=== PATIENT | male | born 1960 | race Caucasian/White ===

== ENCOUNTER 2017-05-01 10:56 | Emergency (ER) | payer MEDICAID ==
[~2017-05-01] VITALS: Ht 175.3 cm; Wt 80.0 kg
[~2017-05-01 10:56] MED LIST: ALBU18HF2 IH; ASPI-1079 PO; FERR-63 PO; FLUT1AER IH; FOLI-43 PO; FURO-151 PO; GLIP5TAB12 PO; MULT-1146 PO
[2017-05-01 12:33] LABS: BASOPHILS % 2.7 % (0.0-2.0); EOSINOPHILS % 0.4 % (0.0-5.0); HEMATOCRIT. 37.2 % (42.0-52.0); LYMPHOCYTES % 18.9 % (20.0-50.0); MEAN CORPUSCULAR HEMOGLOBIN 27.5 pg (28.0-32.0); MEAN CORPUSCULAR VOLUME 85.6 fL (80.0-94.0); MEAN PLATELET VOLUME 9.9 fl (7.4-10.4); PLATELET 240 x1000/uL (130-400); RED BLOOD CELL COUNT 4.35 mill/uL (4.7-6.1); RED CELL DISTRIBUTION WIDTH 18.1 % (11.6-14.6)
[2017-05-01 15:17] VITALS: BP 125/80
[2017-05-01] MEDS ORDERED: ENOXAPARIN 120MG/0.8ML SYR SUBCUT ONE (15:30)
[2017-05-11] MEDS ORDERED: FOLI-43 PO (11:16)
[2017-05-11] MEDS ORDERED: FS300 PO (11:16)
[2017-05-11] MEDS ORDERED: GLIP5TAB12 PO (11:16)
[2017-05-11] MEDS ORDERED: NEPVIT PO (11:16)
[2017-05-11] MEDS ORDERED: ALBU18HF2 IH (11:16)
== END 2017-05-01 16:45 | disposition home or self-care (01) ==
LOC: ER 11:03
DX: I82.622 Acute embolism and thrombosis of deep veins of left upper extremity (principal); I13.2 Hypertensive heart and chronic kidney disease with heart failure and with stage 5 chronic kidney disease, or end stage renal disease; E11.22 Type 2 diabetes mellitus with diabetic chronic kidney disease; N18.6 End stage renal disease; I50.9 Heart failure, unspecified; J44.9 Chronic obstructive pulmonary disease, unspecified; D63.1 Anemia in chronic kidney disease; L97.929 Non-pressure chronic ulcer of unspecified part of left lower leg with unspecified severity; L97.919 Non-pressure chronic ulcer of unspecified part of right lower leg with unspecified severity; Z99.2 Dependence on renal dialysis
CPT/HCPCS: 36415; 85025; 93971; 96372; 99285; J1650

== ENCOUNTER → 2018-01-02 | Emergency (ER) | payer MEDICAID ==
[~2018-01-02] VITALS: Ht 175.3 cm; Wt 82.0 kg
[~2018-01-02] MED LIST changes: +ALTEPLASE 2MG/VIAL ITC ONE; +CEFEPIME 1,000 MG in DEXTROSE 5% WATER 50 ML IV SCH; -FERR-63 PO; +FERR325T23 PO; -FURO-151 PO; -MULT-1146 PO; +NEPVIT PO; +VANCOMYCIN 1 G PREMIX 200 ML IV ONE
[2018-01-02 12:09] LABS: BASOPHILS % 1.1 % (0.0-2.0); EOSINOPHILS % 0.7 % (0.0-5.0); HEMATOCRIT. 39.4 % (42.0-52.0); HEMOGLOBIN. 12.5 g/dL (14.0-18.0); MEAN CORPUSCULAR HEMOGLOBIN 28.2 pg (28.0-32.0); MEAN CORPUSCULAR VOLUME 88.8 fL (80.0-94.0); MEAN PLATELET VOLUME 10.3 fl (7.4-10.4); MONOCYTES % 8.8 % (2.0-8.0); NEUTROPHILS % 68.4 % (40.0-76.0); PLATELET 190 x1000/uL (130-400); RED BLOOD CELL COUNT 4.44 mill/uL (4.7-6.1); RED CELL DISTRIBUTION WIDTH 18.6 % (11.6-14.6)
[2018-01-02 12:17] LABS: CHLORIDE 102 mEq/L (98-107)
[2018-01-02 16:25] LABS: INR 1.5; PROTHROMBIN TIME 15.5 sec (9.4-11.6)
[2018-01-02 17:25] VITALS: BP 121/85
== END ==
LOC: ER 11:16 → EDBEDREQ 13:36 → CANBEDREQ 22:10
DX: T83.018A Breakdown (mechanical) of other urinary catheter, initial encounter (principal); E11.22 Type 2 diabetes mellitus with diabetic chronic kidney disease; E11.621 Type 2 diabetes mellitus with foot ulcer; L97.519 Non-pressure chronic ulcer of other part of right foot with unspecified severity; L97.529 Non-pressure chronic ulcer of other part of left foot with unspecified severity; E11.628 Type 2 diabetes mellitus with other skin complications; L08.9 Local infection of the skin and subcutaneous tissue, unspecified; E11.69 Type 2 diabetes mellitus with other specified complication; I13.2 Hypertensive heart and chronic kidney disease with heart failure and with stage 5 chronic kidney disease, or end stage renal disease; I50.9 Heart failure, unspecified; N18.6 End stage renal disease; J44.9 Chronic obstructive pulmonary disease, unspecified; M86.171 Other acute osteomyelitis, right ankle and foot; M86.172 Other acute osteomyelitis, left ankle and foot; Z99.2 Dependence on renal dialysis; Z79.84 Long term (current) use of oral hypoglycemic drugs; Z79.82 Long term (current) use of aspirin; Z98.890 Other specified postprocedural states; Y92.89 Other specified places as the place of occurrence of the external cause
CPT/HCPCS: 36415; 37211; 73630; 80053; 85025; 85610; 85651; 86140; 87040; 87070; 87077; 87186; 87205; 99285; J0692; J2997; J7060

== ENCOUNTER 2018-10-09 14:11 | Inpatient (IN) | payer MEDICAID ==
[~2018-10-09] VITALS: Ht 167.6 cm; Wt 63.7 kg
[~2018-10-09 14:11] MED LIST changes: -ALTEPLASE 2MG/VIAL ITC ONE; -CEFEPIME 1,000 MG in DEXTROSE 5% WATER 50 ML IV SCH; -VANCOMYCIN 1 G PREMIX 200 ML IV ONE
[2018-10-09] MEDS ORDERED: ONDANSETRON HCL 4MG/2ML INJ IV STA (16:57)
[2018-10-09] MEDS ORDERED: FENTANYL CITRATE/PF 50MCG/ML 2ML VIAL IV ONE (17:15)
[2018-10-09] MEDS ORDERED: PIPERACILLIN/TAZ 3.375G PREMIX 50 ML IV ONE (17:30)
[2018-10-09] MEDS ORDERED: DEXT 5%/0.45% NACL KCL 20MEQ/L 1,000 ML IV SCH ×2 (17:40→23:30)
[2018-10-09] MEDS ORDERED: MORPHINE SULFATE 4 MG/ML CPJ (NOT FOR IM USE) IV PRN ×3 (17:45→18:30)
[2018-10-09] MEDS ORDERED: MORPHINE SULFATE 2 MG/ML CPJ (NOT FOR IM USE) IV PRN (17:45)
[2018-10-09] MEDS ORDERED: HYDROCODONE/ACETAMINOPHEN 5/325MG TABLET PO PRN ×4 (17:45→18:30)
[2018-10-09] MEDS ORDERED: ONDANSETRON HCL 4MG/2ML INJ IV PRN ×3 (17:45→19:30)
[2018-10-09] MEDS ORDERED: SKIN ADHESIVE 0.7 GM EA TOP ONE (17:47)
[2018-10-09] MEDS ORDERED: BUPIVACAINE HCL 0.5% (5MG/ML) 50ML ONE (17:48)
[2018-10-09] MEDS ORDERED: LIDOCAINE HCL/PF 1% 10 MG/ML 5ML VIAL ONE (17:58)
[2018-10-09] MEDS ORDERED: FENTANYL CITRATE/PF 50MCG/ML 2ML VIAL ONE (17:58)
[2018-10-09] MEDS ORDERED: MIDAZOLAM HCL 2 MG/2 ML VIAL ONE (17:59)
[2018-10-09] MEDS ORDERED: SUCCINYLCHOLINE CHLORIDE 200MG/10ML IV ONE (18:00)
[2018-10-09] MEDS ORDERED: ROCURONIUM BROMIDE 10MG/ML VIAL 5ML IV ONE (18:01)
[2018-10-09] MEDS ORDERED: PROPOFOL 200MG/20ML VIAL IV ONE (18:03)
[2018-10-09 18:15] LABS: BASOPHILS % 0.8 % (0.0-2.0); EOSINOPHILS % 0.6 % (0.0-5.0); HEMATOCRIT. 43.5 % (42.0-52.0); HEMOGLOBIN. 14.8 g/dL (14.0-18.0); LYMPHOCYTES % 11.7 % (20.0-50.0); MEAN CORPUSCULAR HEMOGLOBIN 30.4 pg (28.0-32.0); MEAN CORPUSCULAR VOLUME 89.8 fL (80.0-94.0); MEAN PLATELET VOLUME 8.9 fl (7.4-10.4); NEUTROPHILS % 74.9 % (40.0-76.0); PLATELET 270 x1000/uL (130-400); RED BLOOD CELL COUNT 4.85 mill/uL (4.7-6.1); RED CELL DISTRIBUTION WIDTH 16.2 % (11.6-14.6)
[2018-10-09 18:19] LABS: CHLORIDE 80 mEq/L (98-107)
[2018-10-09 18:22] LABS: INR 1.2; PARTIAL THROMBOPLASTIN TIME 28.5 sec (23.4-31.0); PROTHROMBIN TIME 11.8 sec (9.1-11.1)
[2018-10-09] MEDS ORDERED: ETOMIDATE 2MG/ML 10ML VIAL IV ONE (18:29)
[2018-10-09 19:03] LABS: PHOSPHORUS 8.7 mg/dL (2.5-4.9)
[2018-10-09] MEDS ORDERED: NEOSTIGMINE METHYLSULFATE 1MG/ML 10 ML VIAL ONE (19:26)
[2018-10-09] MEDS ORDERED: GLYCOPYRROLATE 0.2 MG/ML 2ML VIAL ONE ×2 (19:26→19:30)
[2018-10-09] MEDS ORDERED: MEPERIDINE HCL/PF 25MG/ML CPJ IV PRN (19:30)
[2018-10-09] MEDS ORDERED: HYDROMORPHONE HCL/PF 2MG/ML CPJ IV PRN (19:30)
[2018-10-09] MEDS ORDERED: LABETALOL HCL 20MG/4ML CARPUJECT IV PRN (19:30)
[2018-10-09] MEDS ORDERED: IPRATROPIUM/ALBUTEROL 0.5-3(2.5)MG/3ML NEB HHN NR (19:45)
[2018-10-09 21:58] LABS: BG BASE EXCESS 13.3 mmol/L (-2.0-2.0); BG CARBOXYHEMOGLOBIN 1.3 % (0.5-1.5); BG DEOXYHEMOGLOBIN 1.2 % (0.0-5.0); BG FRACTION INSPIRED OXYGEN 40; BG HCO3 ACT 37.7 mmol/L (22.0-26.0); BG METHEMOGLOBIN 0.5 % (0.0-1.5); BG OXYGEN SATURATION 98.8 % (92.0-98.5); BG PCO2 45.8 mmHg (35.0-45.0); BG PH 7.533 (7.350-7.450); BG PO2 148.6 mmHg (75.0-100.0); BG SAMPLE SITE RIGHT BRACHIAL; BG TOTAL HEMOGLOBIN 13.8 g/dL (12.0-18.0)
[2018-10-09] MEDS ORDERED: SODIUM CHLORIDE 0.9% INJ 3ML FLUSH IVF SCH (22:00)
[2018-10-09] MEDS ORDERED: IPRATROPIUM/ALBUTEROL 0.5-3(2.5)MG/3ML NEB INH PRN (22:15)
[2018-10-09] MEDS ORDERED: CLONIDINE 0.1MG TABLET PO PRN (22:15)
[2018-10-09 22:45] VITALS: BP 118/64
[2018-10-09 22:54] VITALS: BP 118/64
[2018-10-10] VITALS: BP 118/64
[2018-10-10] MEDS: BUDESONIDE 0.5MG/2ML NEB HHN SCH (01:59)
[2018-10-10 04:00] VITALS: BP 101/54
[2018-10-10] MEDS: SODIUM CHLORIDE 0.9% INJ 3ML FLUSH IVF SCH ×3 (06:27→21:08)
[2018-10-10 07:37] LABS: BASOPHILS % 0.7 % (0.0-2.0); HEMATOCRIT. 39.5 % (42.0-52.0); HEMOGLOBIN. 13.4 g/dL (14.0-18.0); MEAN CORPUSCULAR HEMOGLOBIN 30.6 pg (28.0-32.0); MEAN CORPUSCULAR VOLUME 90.3 fL (80.0-94.0); MEAN PLATELET VOLUME 8.9 fl (7.4-10.4); MONOCYTES % 12.2 % (2.0-8.0); NEUTROPHILS % 76.1 % (40.0-76.0); PLATELET 233 x1000/uL (130-400); RED BLOOD CELL COUNT 4.37 mill/uL (4.7-6.1); RED CELL DISTRIBUTION WIDTH 16.5 % (11.6-14.6)
[2018-10-10 08:00] VITALS: BP 107/68
[2018-10-10] MEDS: DEXT 5%/0.45% NACL 1000ML 1,000 ML IV SCH (11:00)
[2018-10-10] MEDS ORDERED: IPRATROPIUM/ALBUTEROL 0.5-3(2.5)MG/3ML NEB ONE (11:47)
[2018-10-10 11:55] VITALS: BP 106/69
[2018-10-10] MEDS: ASPIRIN 81MG TABLET PO SCH (12:40)
[2018-10-10] MEDS: FOLIC ACID/VITAMIN B COMP W-C TABLET PO SCH (12:40)
[2018-10-10 15:30] LABS: BG VENT MODE VENT - CPAP
[2018-10-10 15:57] VITALS: BP 92/58
[2018-10-10] MEDS: FERROUS SULFATE 325MG TABLET PO SCH (17:22)
[2018-10-10 20:00] VITALS: BP 91/57
[2018-10-10] MEDS: ONDANSETRON HCL 4MG/2ML INJ IV PRN (21:03)
[2018-10-11] VITALS: BP 106/62
[2018-10-11] MEDS: DEXT 5%/0.45% NACL 1000ML 1,000 ML IV SCH (01:23)
[2018-10-11] MEDS: ALBUTEROL (0.5%) 2.5MG/0.5ML NEB HHN SCH ×4 (01:59→21:17)
[2018-10-11 04:00] VITALS: BP 98/57
[2018-10-11 08:00] VITALS: BP 112/73
[2018-10-11 08:00] LABS: BASOPHILS % 0.6 % (0.0-2.0); EOSINOPHILS % 1.3 % (0.0-5.0); HEMATOCRIT. 39.6 % (42.0-52.0); HEMOGLOBIN. 13.4 g/dL (14.0-18.0); LYMPHOCYTES % 17.3 % (20.0-50.0); MEAN CORPUSCULAR HEMOGLOBIN 30.8 pg (28.0-32.0); MEAN CORPUSCULAR VOLUME 91.1 fL (80.0-94.0); MONOCYTES % 14.4 % (2.0-8.0); NEUTROPHILS % 66.4 % (40.0-76.0); PLATELET 211 x1000/uL (130-400); RED BLOOD CELL COUNT 4.35 mill/uL (4.7-6.1); RED CELL DISTRIBUTION WIDTH 16.3 % (11.6-14.6)
[2018-10-11] MEDS: BUDESONIDE 0.5MG/2ML NEB HHN SCH ×2 (08:42→21:17)
[2018-10-11] MEDS: ASPIRIN 81MG TABLET PO SCH (08:42)
[2018-10-11] MEDS: FERROUS SULFATE 325MG TABLET PO SCH ×2 (08:42→16:02)
[2018-10-11] MEDS: FOLIC ACID/VITAMIN B COMP W-C TABLET PO SCH (08:43)
[2018-10-11] MEDS ORDERED: [UNRECOGNIZED DRUG - MIXTURE] IH SCH (09:00)
[2018-10-11 09:18] LABS: CHLORIDE 91 mEq/L (98-107)
[2018-10-11] MEDS: SODIUM CHLORIDE 0.9% INJ 3ML FLUSH IVF SCH ×2 (14:00→22:00)
[2018-10-11 16:00] VITALS: BP 94/60
[2018-10-11 20:00] VITALS: BP 101/63
[2018-10-12 00:15] VITALS: BP 105/66
[2018-10-12] MEDS: ALBUTEROL (0.5%) 2.5MG/0.5ML NEB HHN SCH ×4 (03:08→21:05)
[2018-10-12 04:00] VITALS: BP 113/67
[2018-10-12] MEDS: SODIUM CHLORIDE 0.9% INJ 3ML FLUSH IVF SCH ×3 (05:39→21:43)
[2018-10-12 08:00] VITALS: BP 112/69
[2018-10-12] MEDS: ASPIRIN 81MG TABLET PO SCH (08:22)
[2018-10-12] MEDS: FOLIC ACID/VITAMIN B COMP W-C TABLET PO SCH (08:22)
[2018-10-12] MEDS: FERROUS SULFATE 325MG TABLET PO SCH ×2 (08:22→16:18)
[2018-10-12] MEDS: BUDESONIDE 0.5MG/2ML NEB HHN SCH ×2 (09:07→21:06)
[2018-10-12 09:52] LABS: HEMATOCRIT. 36.8 % (42.0-52.0); HEMOGLOBIN. 12.2 g/dL (14.0-18.0); MEAN CORPUSCULAR VOLUME 90.4 fL (80.0-94.0); MEAN PLATELET VOLUME 9.3 fl (7.4-10.4); PLATELET 187 x1000/uL (130-400); RED BLOOD CELL COUNT 4.07 mill/uL (4.7-6.1); RED CELL DISTRIBUTION WIDTH 16.1 % (11.6-14.6)
[2018-10-12 10:42] LABS: PHOSPHORUS 7.9 mg/dL (2.5-4.9)
[2018-10-12 10:53] LABS: PLATELET ESTIMATE NORMAL
[2018-10-12 12:00] VITALS: BP 109/59
[2018-10-12] MEDS ORDERED: MAGNESIUM/ALUMINUM HYDROXIDE/SIMETHICONE 30ML UDC PO PRN (14:15)
[2018-10-12 16:00] VITALS: BP 104/69
[2018-10-12] MEDS: ONDANSETRON HCL 4MG/2ML INJ IV PRN (19:33)
[2018-10-12 20:00] VITALS: BP 106/66
[2018-10-12] MEDS ORDERED: PANTOPRAZOLE 40MG DR TABLET PO NR (21:30)
[2018-10-13] VITALS: BP 102/63
[2018-10-13] MEDS: ALBUTEROL (0.5%) 2.5MG/0.5ML NEB HHN SCH ×2 (01:00→21:05)
[2018-10-13] MEDS ORDERED: ALBUTEROL (0.083%) 2.5MG/3ML NEB ONE (01:06)
[2018-10-13 04:00] VITALS: BP 113/73
[2018-10-13] MEDS: SODIUM CHLORIDE 0.9% INJ 3ML FLUSH IVF SCH ×3 (06:00→21:39)
[2018-10-13 08:00] VITALS: BP 106/66
[2018-10-13] MEDS: BUDESONIDE 0.5MG/2ML NEB HHN SCH ×2 (08:20→21:05)
[2018-10-13] MEDS: ASPIRIN 81MG TABLET PO SCH (08:33)
[2018-10-13] MEDS: PANTOPRAZOLE 40MG DR TABLET PO SCH (08:33)
[2018-10-13] MEDS: FERROUS SULFATE 325MG TABLET PO SCH ×2 (08:33→18:04)
[2018-10-13] MEDS: FOLIC ACID/VITAMIN B COMP W-C TABLET PO SCH (08:33)
[2018-10-13] MEDS: ENOXAPARIN 30MG/0.3ML SYR SUBCUT SCH (09:30)
[2018-10-13 12:07] VITALS: BP 100/59
[2018-10-13 16:00] VITALS: BP 110/56
[2018-10-13 20:00] VITALS: BP 105/64
[2018-10-14] VITALS: BP 107/63
[2018-10-14] MEDS: ALBUTEROL (0.5%) 2.5MG/0.5ML NEB HHN SCH (01:40)
[2018-10-14 04:00] VITALS: BP 128/60
[2018-10-14] MEDS: SODIUM CHLORIDE 0.9% INJ 3ML FLUSH IVF SCH (05:46)
[2018-10-14 08:15] VITALS: BP 109/67
[2018-10-14] MEDS: PANTOPRAZOLE 40MG DR TABLET PO SCH (09:25)
[2018-10-14] MEDS: ASPIRIN 81MG TABLET PO SCH (09:25)
[2018-10-14] MEDS: ENOXAPARIN 30MG/0.3ML SYR SUBCUT SCH (09:25)
[2018-10-14] MEDS: FOLIC ACID/VITAMIN B COMP W-C TABLET PO SCH (09:25)
[2018-10-14] MEDS: FERROUS SULFATE 325MG TABLET PO SCH (09:25)
[2018-10-14] MEDS ORDERED: ALBUTEROL (0.083%) 2.5MG/3ML NEB HHN SCH (11:34)
[2018-10-14 12:00] VITALS: BP 107/66
[2018-10-14 12:34] VITALS: BP 20/140
== END 2018-10-14 13:00 | disposition home health service (06) | DRG 227 ==
LOC: ER 14:11 → EDBEDREQ 17:25 → EDBEDREQTM 17:25 → ER 18:24 → ENRESERV 20:17 → 8WST 22:12
PROVIDERS: ADMIT Internal Medicine; ATTEND Internal Medicine
PROC: 0WQF0ZZ Repair Abdominal Wall, Open Approach (ICD-10-PCS; principal; 2018-10-09 18:00)
PROC: 5A1D70Z Performance of Urinary Filtration, Intermittent, Less than 6 Hours Per Day (ICD-10-PCS; 2018-10-10)
PROC: 5A1D70Z Performance of Urinary Filtration, Intermittent, Less than 6 Hours Per Day (ICD-10-PCS; 2018-10-11)
DX: K43.6 Other and unspecified ventral hernia with obstruction, without gangrene (principal); I63.9 Cerebral infarction, unspecified; I13.2 Hypertensive heart and chronic kidney disease with heart failure and with stage 5 chronic kidney disease, or end stage renal disease; E46 Unspecified protein-calorie malnutrition; N18.6 End stage renal disease; E11.22 Type 2 diabetes mellitus with diabetic chronic kidney disease; I42.9 Cardiomyopathy, unspecified; I50.22 Chronic systolic (congestive) heart failure; E11.52 Type 2 diabetes mellitus with diabetic peripheral angiopathy with gangrene; E78.5 Hyperlipidemia, unspecified; E87.1 Hypo-osmolality and hyponatremia; D63.1 Anemia in chronic kidney disease; I44.4 Left anterior fascicular block; N25.81 Secondary hyperparathyroidism of renal origin; Z86.711 Personal history of pulmonary embolism; Z99.2 Dependence on renal dialysis; J44.9 Chronic obstructive pulmonary disease, unspecified; Z79.84 Long term (current) use of oral hypoglycemic drugs; Z82.49 Family history of ischemic heart disease and other diseases of the circulatory system; Z86.73 Personal history of transient ischemic attack (TIA), and cerebral infarction without residual deficits; Z87.891 Personal history of nicotine dependence
CPT/HCPCS: 36415; 36600; 80048; 80061; 82375; 82805; 83735; 84100; 84443; 84484; 86850; 86900; 86920; 88302; 93005; 93922; 94002; 94640; 97162; 97535; 99291; C1893; J0330; J1650; J2250; J2270; J2405; J2543; J2704; J2710; J3010; J3490; J7611; J7620; J7626

== ENCOUNTER 2019-07-31 10:26 | Inpatient (IN) | payer MEDICAID ==
[~2019-07-31] VITALS: Ht 172.7 cm; Wt 77.6 kg
[2019-07-31] MEDS ORDERED: LORAZEPAM 2MG/ML CPJ IV ONE (10:45)
[2019-07-31] MEDS: INSULIN LISPRO 100 UNITS/ML SUBCUT SCH (11:00)
[2019-07-31 11:31] LABS: BASOPHILS % 0.4 % (0.0-2.0); EOSINOPHILS % 1.7 % (0.0-5.0); HEMATOCRIT. 42.8 % (42.0-52.0); HEMOGLOBIN. 14.2 g/dL (14.0-18.0); LYMPHOCYTES % 13.2 % (20.0-50.0); MEAN CORPUSCULAR HEMOGLOBIN 32.7 pg (28.0-32.0); MEAN CORPUSCULAR VOLUME 98.3 fL (80.0-94.0); MEAN PLATELET VOLUME 9.7 fl (7.4-10.4); MONOCYTES % 7.9 % (2.0-8.0); NEUTROPHILS % 76.8 % (40.0-76.0); PLATELET 240 x1000/uL (130-400); RED BLOOD CELL COUNT 4.35 mill/uL (4.7-6.1); RED CELL DISTRIBUTION WIDTH 14.9 % (11.6-14.6)
[2019-07-31 11:38] LABS: CHLORIDE 105 mEq/L (98-107)
[2019-07-31 11:40] LABS: PROTHROMBIN TIME 10.3 sec (9.6-11.0)
[2019-07-31] MEDS ORDERED: ONDANSETRON HCL 4MG/2ML INJ IV ONE (12:00)
[2019-07-31] MEDS ORDERED: PIPERACILLIN/TAZ 3.375G PREMIX 50 ML IV ONE (12:00)
[2019-07-31] MEDS ORDERED: ETOMIDATE 2MG/ML 10ML VIAL IV ONE ×2 (12:00→12:01)
[2019-07-31] MEDS ORDERED: MIDAZOLAM HCL 50 MG in DEXTROSE 5% WATER 40 ML IV ONE (12:00)
[2019-07-31] MEDS ORDERED: SUCCINYLCHOLINE CHLORIDE 200MG/10ML IV ONE ×2 (12:00→12:01)
[2019-07-31] MEDS ORDERED: MIDAZOLAM HCL 2 MG/2 ML VIAL IV ONE (12:00)
[2019-07-31] MEDS ORDERED: MIDAZOLAM HCL 50 MG in DEXTROSE 5% WATER 40 ML IV SCH (12:30)
[2019-07-31 12:44] LABS: BG BASE EXCESS -3.8 mmol/L (-2.0-2.0); BG CARBOXYHEMOGLOBIN 0.7 % (0.5-1.5); BG FRACTION INSPIRED OXYGEN 44; BG HCO3 ACT 22.7 mmol/L (22.0-26.0); BG METHEMOGLOBIN 0.3 % (0.0-1.5); BG OXYGEN SATURATION 91.9 % (92.0-98.5); BG PCO2 46.9 mmHg (35.0-45.0); BG PH 7.303 (7.350-7.450); BG SAMPLE SITE RIGHT BRACHIAL; BG TOTAL HEMOGLOBIN 13.5 g/dL (12.0-18.0); BG VENT MODE NASAL CANNULA
[2019-07-31] MEDS ORDERED: DOCUSATE SODIUM 100MG CAPSULE PO PRN (13:15)
[2019-07-31] MEDS ORDERED: IPRATROPIUM/ALBUTEROL 0.5-3(2.5)MG/3ML NEB NEB PRN (13:15)
[2019-07-31] MEDS ORDERED: ACETAMINOPHEN 325MG TABLET PO PRN (13:15)
[2019-07-31] MEDS ORDERED: ONDANSETRON HCL 4MG/2ML INJ IV PRN (13:15)
[2019-07-31 14:39] LABS: BG BASE EXCESS -3.4 mmol/L (-2.0-2.0); BG DEOXYHEMOGLOBIN 0.8 % (0.0-5.0); BG FRACTION INSPIRED OXYGEN 100; BG HCO3 ACT 22.3 mmol/L (22.0-26.0); BG METHEMOGLOBIN 0.2 % (0.0-1.5); BG OXYGEN SATURATION 99.2 % (92.0-98.5); BG PCO2 42.5 mmHg (35.0-45.0); BG PH 7.338 (7.350-7.450); BG PO2 272.3 mmHg (75.0-100.0); BG SAMPLE SITE RIGHT BRACHIAL; BG TIDAL VOLUME(mL) 550 mL; BG TOTAL HEMOGLOBIN 13.2 g/dL (12.0-18.0); BG VENT MODE VENT - A/C; BG VENT RATE 16 set
[2019-07-31 14:43] LABS: CLARITY URINE CLOUDY (CLEAR); COLOR URINE YELLOW (YELLOW); KETONES URINE NEGATIVE (NEGATIVE); LEUKOCYTE ESTERASE URINE 2+ (NEGATIVE); NITRITE URINE NEGATIVE (NEGATIVE); OCCULT BLOOD URINE 2+ (NEGATIVE); PH URINE 5.5 (4.5-8.0); PROTEIN URINE 3+ (NEGATIVE); SPECIFIC GRAVITY URINE 1.018 (1.005-1.030); UROBILINOGEN URINE 0.2 E.U./dL (0.2-1.0)
[2019-07-31] MEDS ORDERED: PROPOFOL 10MG/ML 100ML 100 ML IV PRN (15:30)
[2019-07-31] MEDS ORDERED: IPRATROPIUM/ALBUTEROL 0.5-3(2.5)MG/3ML NEB HHN PRN (15:30)
[2019-07-31] MEDS ORDERED: INSULIN LISPRO 100 UNITS/ML SUBCUT SCH (15:30)
[2019-07-31] MEDS ORDERED: BLOOD SUGAR DIAGNOSTIC STRIP TEST SCH (15:30)
[2019-07-31] MEDS ORDERED: DEXTROSE 50% WATER 50ML SYRINGE IV PRN (15:30)
[2019-07-31] MEDS: IPRATROPIUM/ALBUTEROL 0.5-3(2.5)MG/3ML NEB HHN SCH (21:07)
[2019-07-31] MEDS ORDERED: PIPERACILLIN/TAZ 3.375G PREMIX 50 ML IV NR (21:20)
[2019-07-31 21:52] LABS: CREATINE KINASE MB FRACTION 4.8 ng/mL (0.5-3.6)
[2019-07-31] MEDS: BLOOD SUGAR DIAGNOSTIC STRIP TEST SCH (22:24)
[2019-07-31] MEDS ORDERED: FAMOTIDINE 20MG/2ML VIAL IV NR (22:30)
[2019-07-31] MEDS ORDERED: VANCOMYCIN 1 G PREMIX 200 ML IV SCH (23:00)
[2019-07-31 23:10] LABS: CREATINE KINASE MB FRACTION 4.4 ng/mL (0.5-3.6)
[2019-08-01] VITALS (75 sets, daily range): BP systolic 88–122; BP diastolic 43–75
[2019-08-01] MEDS: IPRATROPIUM/ALBUTEROL 0.5-3(2.5)MG/3ML NEB HHN SCH ×6 (00:42→21:15)
[2019-08-01] MEDS: BLOOD SUGAR DIAGNOSTIC STRIP TEST SCH ×4 (05:54→23:26)
[2019-08-01 06:52] LABS: HEMATOCRIT. 35.1 % (42.0-52.0); HEMOGLOBIN. 12.1 g/dL (14.0-18.0); MEAN CORPUSCULAR HEMOGLOBIN 33.4 pg (28.0-32.0); MEAN CORPUSCULAR VOLUME 97.3 fL (80.0-94.0); MEAN PLATELET VOLUME 9.7 fl (7.4-10.4); PLATELET 158 x1000/uL (130-400); RED BLOOD CELL COUNT 3.61 mill/uL (4.7-6.1); RED CELL DISTRIBUTION WIDTH 14.5 % (11.6-14.6)
[2019-08-01 07:42] LABS: PLATELET ESTIMATE NORMAL
[2019-08-01] MEDS ORDERED: FAMOTIDINE 20MG TABLET PO SCH (09:00)
[2019-08-01] MEDS ORDERED: PIPERACILLIN/TAZ 3.375G PREMIX 50 ML IV SCH (09:00)
[2019-08-01] MEDS: HEPARIN 5000 UNITS/ML VIAL SUBCUT SCH ×2 (09:00→21:22)
[2019-08-01] MEDS: INSULIN LISPRO 100 UNITS/ML SUBCUT SCH ×3 (11:00→23:00)
[2019-08-01] MEDS: FAMOTIDINE 20MG/2ML VIAL IV SCH (11:17)
[2019-08-01] MEDS ORDERED: VANCOMYCIN 1 G PREMIX 200 ML IV NR (15:00)
[2019-08-01 15:44] LABS: BG BASE EXCESS -3.8 mmol/L (-2.0-2.0); BG CARBOXYHEMOGLOBIN 0.4 % (0.5-1.5); BG DEOXYHEMOGLOBIN 1.3 % (0.0-5.0); BG FRACTION INSPIRED OXYGEN 40; BG HCO3 ACT 19.6 mmol/L (22.0-26.0); BG OXYGEN SATURATION 98.7 % (92.0-98.5); BG OXYHEMOGLOBIN 98.3 % (94.0-97.0); BG PCO2 31.2 mmHg (35.0-45.0); BG PH 7.417 (7.350-7.450); BG PO2 152.8 mmHg (75.0-100.0); BG SAMPLE SITE LEFT RADIAL; BG TIDAL VOLUME(mL) 550 mL; BG TOTAL HEMOGLOBIN 13.4 g/dL (12.0-18.0); BG VENT MODE VENT - A/C; BG VENT RATE 16 set
[2019-08-01] MEDS: PIPERACILLIN/TAZOBACTAM 2.25 G in DEXTROSE 5% WATER 50 ML IV SCH ×2 (15:49→18:57)
[2019-08-01 22:08] LABS: HEMATOCRIT. 38.5 % (42.0-52.0); MEAN CORPUSCULAR HEMOGLOBIN 33.2 pg (28.0-32.0); MEAN CORPUSCULAR VOLUME 98.4 fL (80.0-94.0); MEAN PLATELET VOLUME 10.1 fl (7.4-10.4); PLATELET 156 x1000/uL (130-400); RED BLOOD CELL COUNT 3.91 mill/uL (4.7-6.1); RED CELL DISTRIBUTION WIDTH 14.7 % (11.6-14.6)
[2019-08-01 22:22] LABS: PLATELET ESTIMATE NORMAL
[2019-08-01] MEDS: PROPOFOL 10MG/ML 100ML 100 ML IV PRN (23:59)
[2019-08-02] VITALS (100 sets, daily range): BP systolic 89–132; BP diastolic 53–85
[2019-08-02] MEDS: IPRATROPIUM/ALBUTEROL 0.5-3(2.5)MG/3ML NEB HHN SCH ×6 (00:41→21:46)
[2019-08-02] MEDS: PIPERACILLIN/TAZOBACTAM 2.25 G in DEXTROSE 5% WATER 50 ML IV SCH ×3 (02:00→18:46)
[2019-08-02] MEDS: INSULIN LISPRO 100 UNITS/ML SUBCUT SCH ×4 (05:00→23:00)
[2019-08-02] MEDS: BLOOD SUGAR DIAGNOSTIC STRIP TEST SCH ×4 (05:54→23:00)
[2019-08-02 08:41] LABS: BG BASE EXCESS -3.3 mmol/L (-2.0-2.0); BG CARBOXYHEMOGLOBIN 0.3 % (0.5-1.5); BG DEOXYHEMOGLOBIN 1.4 % (0.0-5.0); BG FRACTION INSPIRED OXYGEN 40; BG HCO3 ACT 20.3 mmol/L (22.0-26.0); BG METHEMOGLOBIN 0.6 % (0.0-1.5); BG OXYGEN SATURATION 98.6 % (92.0-98.5); BG OXYHEMOGLOBIN 97.7 % (94.0-97.0); BG PCO2 32.5 mmHg (35.0-45.0); BG PH 7.414 (7.350-7.450); BG PO2 176.4 mmHg (75.0-100.0); BG SAMPLE SITE RIGHT RADIAL; BG TIDAL VOLUME(mL) 550 mL; BG VENT MODE VENT - A/C; BG VENT RATE 16 set
[2019-08-02] MEDS ORDERED: DEXT 5%/0.45% NACL 1000ML 1,000 ML IV SCH (09:30)
[2019-08-02] MEDS: FAMOTIDINE 20MG/2ML VIAL IV SCH (09:33)
[2019-08-02] MEDS: HEPARIN 5000 UNITS/ML VIAL SUBCUT SCH ×2 (09:34→20:36)
[2019-08-02] MEDS: ASPIRIN 81MG EC TABLET PO SCH (13:00)
[2019-08-02] MEDS: PROPOFOL 10MG/ML 100ML 100 ML IV PRN ×2 (13:55→18:47)
[2019-08-03] VITALS (45 sets, daily range): BP systolic 94–135; BP diastolic 47–79
[2019-08-03] MEDS: PROPOFOL 10MG/ML 100ML 100 ML IV PRN ×6 (00:38→22:01)
[2019-08-03] MEDS: IPRATROPIUM/ALBUTEROL 0.5-3(2.5)MG/3ML NEB HHN SCH ×6 (01:12→20:17)
[2019-08-03] MEDS: PIPERACILLIN/TAZOBACTAM 2.25 G in DEXTROSE 5% WATER 50 ML IV SCH ×3 (02:21→17:42)
[2019-08-03] MEDS: INSULIN LISPRO 100 UNITS/ML SUBCUT SCH ×4 (05:00→23:00)
[2019-08-03] MEDS: BLOOD SUGAR DIAGNOSTIC STRIP TEST SCH ×4 (05:23→23:00)
[2019-08-03 06:27] LABS: BASOPHILS % 0.6 % (0.0-2.0); EOSINOPHILS % 4.8 % (0.0-5.0); HEMATOCRIT. 38.7 % (42.0-52.0); HEMOGLOBIN. 13.2 g/dL (14.0-18.0); LYMPHOCYTES % 9.3 % (20.0-50.0); MEAN CORPUSCULAR HEMOGLOBIN 33.3 pg (28.0-32.0); MEAN CORPUSCULAR VOLUME 97.7 fL (80.0-94.0); MEAN PLATELET VOLUME 9.7 fl (7.4-10.4); MONOCYTES % 9.6 % (2.0-8.0); NEUTROPHILS % 75.7 % (40.0-76.0); PLATELET 169 x1000/uL (130-400); RED BLOOD CELL COUNT 3.96 mill/uL (4.7-6.1); RED CELL DISTRIBUTION WIDTH 14.8 % (11.6-14.6)
[2019-08-03 09:01] LABS: BG BASE EXCESS -3.4 mmol/L (-2.0-2.0); BG CARBOXYHEMOGLOBIN 0.1 % (0.5-1.5); BG DEOXYHEMOGLOBIN 0.9 % (0.0-5.0); BG FRACTION INSPIRED OXYGEN 40; BG HCO3 ACT 19.4 mmol/L (22.0-26.0); BG METHEMOGLOBIN 0.1 % (0.0-1.5); BG OXYGEN SATURATION 99.1 % (92.0-98.5); BG OXYHEMOGLOBIN 98.9 % (94.0-97.0); BG PCO2 28.9 mmHg (35.0-45.0); BG PH 7.445 (7.350-7.450); BG PO2 205.5 mmHg (75.0-100.0); BG SAMPLE SITE LEFT RADIAL; BG TIDAL VOLUME(mL) 550 mL; BG TOTAL HEMOGLOBIN 13.6 g/dL (12.0-18.0); BG VENT MODE VENT - A/C; BG VENT RATE 16 set
[2019-08-03] MEDS: FAMOTIDINE 20MG/2ML VIAL IV SCH (09:45)
[2019-08-03] MEDS: HEPARIN 5000 UNITS/ML VIAL SUBCUT SCH ×2 (09:45→21:04)
[2019-08-03] MEDS: ASPIRIN 81MG EC TABLET PO SCH (09:45)
[2019-08-04] VITALS (92 sets, daily range): BP systolic 93–149; BP diastolic 43–92
[2019-08-04] MEDS: IPRATROPIUM/ALBUTEROL 0.5-3(2.5)MG/3ML NEB HHN SCH ×6 (00:07→20:07)
[2019-08-04] MEDS: PROPOFOL 10MG/ML 100ML 100 ML IV PRN ×4 (02:11→10:18)
[2019-08-04] MEDS: PIPERACILLIN/TAZOBACTAM 2.25 G in DEXTROSE 5% WATER 50 ML IV SCH ×3 (02:11→18:43)
[2019-08-04] MEDS: INSULIN LISPRO 100 UNITS/ML SUBCUT SCH ×4 (05:00→23:00)
[2019-08-04] MEDS: BLOOD SUGAR DIAGNOSTIC STRIP TEST SCH ×4 (05:46→23:55)
[2019-08-04 06:52] LABS: BASOPHILS % 0.6 % (0.0-2.0); EOSINOPHILS % 6.1 % (0.0-5.0); HEMATOCRIT. 38.6 % (42.0-52.0); HEMOGLOBIN. 12.9 g/dL (14.0-18.0); LYMPHOCYTES % 9.2 % (20.0-50.0); MEAN CORPUSCULAR HEMOGLOBIN 33.2 pg (28.0-32.0); MEAN CORPUSCULAR VOLUME 99.1 fL (80.0-94.0); MONOCYTES % 11.1 % (2.0-8.0); PLATELET 187 x1000/uL (130-400)
[2019-08-04 08:18] LABS: BG BASE EXCESS -4.1 mmol/L (-2.0-2.0); BG CARBOXYHEMOGLOBIN 0.3 % (0.5-1.5); BG DEOXYHEMOGLOBIN 1.4 % (0.0-5.0); BG FRACTION INSPIRED OXYGEN 40; BG HCO3 ACT 20.1 mmol/L (22.0-26.0); BG METHEMOGLOBIN 0.3 % (0.0-1.5); BG OXYGEN SATURATION 98.6 % (92.0-98.5); BG PCO2 34.3 mmHg (35.0-45.0); BG PH 7.386 (7.350-7.450); BG PO2 156.1 mmHg (75.0-100.0); BG SAMPLE SITE LEFT RADIAL; BG TIDAL VOLUME(mL) 550 mL; BG TOTAL HEMOGLOBIN 12.8 g/dL (12.0-18.0); BG VENT MODE VENT - A/C; BG VENT RATE 16 set
[2019-08-04] MEDS: ASPIRIN 81MG EC TABLET PO SCH (09:05)
[2019-08-04] MEDS: FAMOTIDINE 20MG/2ML VIAL IV SCH (09:06)
[2019-08-04] MEDS: HEPARIN 5000 UNITS/ML VIAL SUBCUT SCH ×2 (09:06→21:41)
[2019-08-04 13:43] LABS: BG BASE EXCESS -5.6 mmol/L (-2.0-2.0); BG CARBOXYHEMOGLOBIN 0.2 % (0.5-1.5); BG DEOXYHEMOGLOBIN 1.1 % (0.0-5.0); BG FRACTION INSPIRED OXYGEN 40; BG HCO3 ACT 20.3 mmol/L (22.0-26.0); BG METHEMOGLOBIN 0.2 % (0.0-1.5); BG OXYGEN SATURATION 98.9 % (92.0-98.5); BG OXYHEMOGLOBIN 98.5 % (94.0-97.0); BG PCO2 41.2 mmHg (35.0-45.0); BG PH 7.311 (7.350-7.450); BG PO2 193.8 mmHg (75.0-100.0); BG PRESSURE SUPPORT 8; BG SAMPLE SITE LEFT RADIAL; BG TOTAL HEMOGLOBIN 13.1 g/dL (12.0-18.0); BG VENT MODE VENT - CPAP
[2019-08-05] VITALS (99 sets, daily range): BP systolic 85–152; BP diastolic 21–110
[2019-08-05] MEDS: IPRATROPIUM/ALBUTEROL 0.5-3(2.5)MG/3ML NEB HHN SCH ×6 (00:17→17:35)
[2019-08-05] MEDS: INSULIN LISPRO 100 UNITS/ML SUBCUT SCH ×4 (01:00→17:00)
[2019-08-05] MEDS: BLOOD SUGAR DIAGNOSTIC STRIP TEST SCH ×4 (01:15→17:00)
[2019-08-05] MEDS: PIPERACILLIN/TAZOBACTAM 2.25 G in DEXTROSE 5% WATER 50 ML IV SCH ×3 (01:55→17:08)
[2019-08-05 06:15] LABS: BASOPHILS % 0.8 % (0.0-2.0); EOSINOPHILS % 8.5 % (0.0-5.0); HEMATOCRIT. 37.2 % (42.0-52.0); HEMOGLOBIN. 12.6 g/dL (14.0-18.0); LYMPHOCYTES % 9.1 % (20.0-50.0); MEAN CORPUSCULAR HEMOGLOBIN 33.7 pg (28.0-32.0); MEAN CORPUSCULAR VOLUME 98.9 fL (80.0-94.0); MEAN PLATELET VOLUME 9.8 fl (7.4-10.4); MONOCYTES % 10.7 % (2.0-8.0); NEUTROPHILS % 70.9 % (40.0-76.0); PLATELET 185 x1000/uL (130-400); RED BLOOD CELL COUNT 3.76 mill/uL (4.7-6.1); RED CELL DISTRIBUTION WIDTH 15.3 % (11.6-14.6)
[2019-08-05] MEDS: ASPIRIN 81MG EC TABLET PO SCH (09:00)
[2019-08-05] MEDS: FAMOTIDINE 20MG/2ML VIAL IV SCH (09:29)
[2019-08-05] MEDS: HEPARIN 5000 UNITS/ML VIAL SUBCUT SCH ×2 (11:04→21:22)
[2019-08-05] MEDS ORDERED: CARVEDILOL 3.125 MG TABLET PO NR (13:00)
[2019-08-05] MEDS ORDERED: VANCOMYCIN 1 G PREMIX 200 ML IV NR (14:00)
[2019-08-05] MEDS: CARVEDILOL 3.125 MG TABLET PO SCH (21:18)
[2019-08-06] VITALS (47 sets, daily range): BP systolic 89–161; BP diastolic 41–106
[2019-08-06] MEDS: PIPERACILLIN/TAZOBACTAM 2.25 G in DEXTROSE 5% WATER 50 ML IV SCH ×3 (02:14→18:38)
[2019-08-06] MEDS: IPRATROPIUM/ALBUTEROL 0.5-3(2.5)MG/3ML NEB HHN SCH ×5 (04:56→20:07)
[2019-08-06 06:44] LABS: BASOPHILS % 0.7 % (0.0-2.0); EOSINOPHILS % 7.5 % (0.0-5.0); HEMATOCRIT. 36.8 % (42.0-52.0); HEMOGLOBIN. 12.3 g/dL (14.0-18.0); LYMPHOCYTES % 11.3 % (20.0-50.0); MEAN CORPUSCULAR VOLUME 98.4 fL (80.0-94.0); MEAN PLATELET VOLUME 9.4 fl (7.4-10.4); MONOCYTES % 12.6 % (2.0-8.0); NEUTROPHILS % 67.9 % (40.0-76.0); PLATELET 196 x1000/uL (130-400); RED BLOOD CELL COUNT 3.74 mill/uL (4.7-6.1); RED CELL DISTRIBUTION WIDTH 14.6 % (11.6-14.6)
[2019-08-06] MEDS: BLOOD SUGAR DIAGNOSTIC STRIP TEST SCH ×3 (06:51→18:40)
[2019-08-06] MEDS: INSULIN LISPRO 100 UNITS/ML SUBCUT SCH ×3 (06:51→18:00)
[2019-08-06] MEDS: HEPARIN 5000 UNITS/ML VIAL SUBCUT SCH ×2 (09:09→21:33)
[2019-08-06] MEDS: ASPIRIN 81MG EC TABLET PO SCH (09:09)
[2019-08-06] MEDS: CARVEDILOL 3.125 MG TABLET PO SCH ×2 (09:09→21:32)
[2019-08-06] MEDS: FAMOTIDINE 20MG/2ML VIAL IV SCH (09:09)
[2019-08-06] MEDS ORDERED: BENZONATATE 100MG CAPSULE PO PRN (13:45)
[2019-08-06] MEDS: BUDESONIDE 0.5MG/2ML NEB HHN SCH (17:05)
[2019-08-07] VITALS (7 sets, daily range): BP systolic 103–129; BP diastolic 56–86
[2019-08-07] MEDS: BLOOD SUGAR DIAGNOSTIC STRIP TEST SCH ×5 (00:04→23:47)
[2019-08-07] MEDS: IPRATROPIUM/ALBUTEROL 0.5-3(2.5)MG/3ML NEB HHN SCH ×5 (00:09→20:16)
[2019-08-07] MEDS: PIPERACILLIN/TAZOBACTAM 2.25 G in DEXTROSE 5% WATER 50 ML IV SCH ×3 (02:23→17:53)
[2019-08-07] MEDS: INSULIN LISPRO 100 UNITS/ML SUBCUT SCH ×5 (05:55→23:47)
[2019-08-07 07:22] LABS: BASOPHILS % 0.5 % (0.0-2.0); EOSINOPHILS % 7.8 % (0.0-5.0); HEMATOCRIT. 35.8 % (42.0-52.0); HEMOGLOBIN. 12.1 g/dL (14.0-18.0); LYMPHOCYTES % 14.2 % (20.0-50.0); MEAN CORPUSCULAR HEMOGLOBIN 33.3 pg (28.0-32.0); MEAN CORPUSCULAR VOLUME 98.9 fL (80.0-94.0); MEAN PLATELET VOLUME 9.4 fl (7.4-10.4); MONOCYTES % 13.7 % (2.0-8.0); NEUTROPHILS % 63.8 % (40.0-76.0); PLATELET 201 x1000/uL (130-400); RED BLOOD CELL COUNT 3.62 mill/uL (4.7-6.1); RED CELL DISTRIBUTION WIDTH 14.6 % (11.6-14.6)
[2019-08-07] MEDS: BUDESONIDE 0.5MG/2ML NEB HHN SCH ×2 (07:54→20:16)
[2019-08-07] MEDS: CARVEDILOL 3.125 MG TABLET PO SCH ×2 (08:19→21:00)
[2019-08-07] MEDS: FAMOTIDINE 20MG/2ML VIAL IV SCH (08:28)
[2019-08-07] MEDS: ASPIRIN 81MG EC TABLET PO SCH (08:28)
[2019-08-07] MEDS: HEPARIN 5000 UNITS/ML VIAL SUBCUT SCH ×2 (08:29→21:12)
[2019-08-07] MEDS: FLUDROCORTISONE ACETATE 0.1MG TABLET PO SCH (13:00)
[2019-08-07] MEDS: LOSARTAN POTASSIUM 25 MG TABLET PO SCH (16:00)
[2019-08-07] MEDS ORDERED: VANCOMYCIN 1 G PREMIX 200 ML IV SCH (21:00)
[2019-08-08] MEDS: IPRATROPIUM/ALBUTEROL 0.5-3(2.5)MG/3ML NEB HHN SCH ×3 (01:48→14:53)
[2019-08-08] MEDS ORDERED: HYDROCODONE/ACETAMINOPHEN 5/325MG TABLET PO PRN (05:15)
[2019-08-08] MEDS ORDERED: DIPHENHYDRAMINE 50MG/ML VIAL IV PRN (05:15)
[2019-08-08] MEDS: INSULIN LISPRO 100 UNITS/ML SUBCUT SCH ×2 (06:00→12:00)
[2019-08-08] MEDS: BLOOD SUGAR DIAGNOSTIC STRIP TEST SCH ×2 (06:30→12:42)
[2019-08-08] MEDS: BUDESONIDE 0.5MG/2ML NEB HHN SCH (07:56)
[2019-08-08 08:00] VITALS: BP 110/75
[2019-08-08 08:14] LABS: BASOPHILS % 0.8 % (0.0-2.0); EOSINOPHILS % 7.3 % (0.0-5.0); HEMATOCRIT. 35.8 % (42.0-52.0); LYMPHOCYTES % 15.3 % (20.0-50.0); MEAN CORPUSCULAR HEMOGLOBIN 33.1 pg (28.0-32.0); MEAN CORPUSCULAR VOLUME 98.9 fL (80.0-94.0); MEAN PLATELET VOLUME 8.9 fl (7.4-10.4); MONOCYTES % 11.6 % (2.0-8.0); PLATELET 238 x1000/uL (130-400); RED BLOOD CELL COUNT 3.62 mill/uL (4.7-6.1); RED CELL DISTRIBUTION WIDTH 14.8 % (11.6-14.6)
[2019-08-08] MEDS: CARVEDILOL 3.125 MG TABLET PO SCH (09:00)
[2019-08-08] MEDS: LOSARTAN POTASSIUM 25 MG TABLET PO SCH (09:00)
[2019-08-08] MEDS: ASPIRIN 81MG EC TABLET PO SCH (09:05)
[2019-08-08] MEDS: FLUDROCORTISONE ACETATE 0.1MG TABLET PO SCH (09:06)
[2019-08-08] MEDS: HEPARIN 5000 UNITS/ML VIAL SUBCUT SCH (09:10)
[2019-08-08] MEDS: FAMOTIDINE 20MG/2ML VIAL IV SCH (09:16)
[2019-08-08 09:54] VITALS: BP 96/74
[2019-08-08 12:00] VITALS: BP 104/56
[2019-08-08 16:00] VITALS: BP 117/65
[2019-08-08 16:34] VITALS: BP 104/56
== END 2019-08-08 17:53 | disposition home health service (06) | DRG 720 ==
LOC: ER 10:34 → 5EST 11:58 → EDBEDREQSVC 12:23 → EDBEDREQ 12:23 → EDBEDREQTM 12:23 → ENRESERV 08-01 07:00 → CANRESERV 08-01 07:00 → ENRESERV 08-01 08:19 → 5EST 08-06 11:25 → 6WST 08-08 11:33
PROVIDERS: ADMIT Internal Medicine; ATTEND Internal Medicine
PROC: 5A1955Z Respiratory Ventilation, Greater than 96 Consecutive Hours (ICD-10-PCS; principal; 2019-07-31)
PROC: 0BH17EZ Insertion of Endotracheal Airway into Trachea, Via Natural or Artificial Opening (ICD-10-PCS; 2019-07-31)
PROC: 5A1D70Z Performance of Urinary Filtration, Intermittent, Less than 6 Hours Per Day (ICD-10-PCS; 2019-08-01)
PROC: 5A1D70Z Performance of Urinary Filtration, Intermittent, Less than 6 Hours Per Day (ICD-10-PCS; 2019-08-02)
PROC: 5A1D70Z Performance of Urinary Filtration, Intermittent, Less than 6 Hours Per Day (ICD-10-PCS; 2019-08-04)
PROC: 5A1D70Z Performance of Urinary Filtration, Intermittent, Less than 6 Hours Per Day (ICD-10-PCS; 2019-08-06)
DX: A41.9 Sepsis, unspecified organism (principal); J69.0 Pneumonitis due to inhalation of food and vomit; G93.41 Metabolic encephalopathy; J96.01 Acute respiratory failure with hypoxia; J96.02 Acute respiratory failure with hypercapnia; Z99.11 Dependence on respirator [ventilator] status; I13.2 Hypertensive heart and chronic kidney disease with heart failure and with stage 5 chronic kidney disease, or end stage renal disease; N25.0 Renal osteodystrophy; G90.8 Other disorders of autonomic nervous system; E11.22 Type 2 diabetes mellitus with diabetic chronic kidney disease; E11.51 Type 2 diabetes mellitus with diabetic peripheral angiopathy without gangrene; N18.6 End stage renal disease; I07.1 Rheumatic tricuspid insufficiency; I27.20 Pulmonary hypertension, unspecified; Z99.2 Dependence on renal dialysis; I50.43 Acute on chronic combined systolic (congestive) and diastolic (congestive) heart failure; J44.9 Chronic obstructive pulmonary disease, unspecified; D50.9 Iron deficiency anemia, unspecified; E11.621 Type 2 diabetes mellitus with foot ulcer; E78.5 Hyperlipidemia, unspecified; I42.0 Dilated cardiomyopathy; I89.0 Lymphedema, not elsewhere classified; L97.519 Non-pressure chronic ulcer of other part of right foot with unspecified severity; N40.0 Benign prostatic hyperplasia without lower urinary tract symptoms; Z78.1 Physical restraint status; Z79.51 Long term (current) use of inhaled steroids; Z79.899 Other long term (current) drug therapy; Z85.46 Personal history of malignant neoplasm of prostate; Z86.73 Personal history of transient ischemic attack (TIA), and cerebral infarction without residual deficits; Z79.82 Long term (current) use of aspirin; Z89.9 Acquired absence of limb, unspecified
CPT/HCPCS: 36415; 36600; 71045; 80048; 80202; 81003; 82375; 82550; 82553; 82805; 82962; 83735; 84145; 84478; 84484; 86850; 86900; 87070; 92610; 93005; 93306; 93970; 94002; 94003; 94640; 96365; 97116; 97162; 97166; 97530; 97535; 99291; A6261; J0330; J1644; J2060; J2250; J2405; J2543; J2704; J3370; J3490; J7040; J7060; J7620; J7626